=== PATIENT | male | born 1995 | race Caucasian/White ===

== ENCOUNTER 2022-10-25 09:08 | Emergency (ER) | payer MEDICAID ==
[~2022-10-25] VITALS: Ht 172.7 cm; Wt 90.9 kg
[~2022-10-25 09:08] MED LIST: CARB200T6
[2022-10-25 10:10] LABS: COVID AG,FIA SOURCE NASAL SWAB
[2022-10-25 10:52] LABS: INFLUENZA TYPE A NEGATIVE FOR TYPE A (NEGATIVE); INFLUENZA TYPE B NEGATIVE FOR TYPE B (NEGATIVE)
[2022-10-25] MEDS ORDERED: BENZ1LOZ77 PO (11:14)
[2022-10-25] MEDS ORDERED: BENZ-70 PO (11:14)
[2022-10-25] MEDS ORDERED: IBUP-2070 PO (11:14)
[2022-10-25 11:44] VITALS: BP 115/68
== END 2022-10-25 11:51 | disposition home or self-care (01) ==
LOC: EMS 09:14
DX: J06.9 Acute upper respiratory infection, unspecified (principal); Z20.822 Contact with and (suspected) exposure to COVID-19
CPT/HCPCS: 87804; 99283

== ENCOUNTER 2022-10-31 11:47 | Emergency (ER) | payer MEDICAID ==
[~2022-10-31] VITALS: Ht 170.2 cm; Wt 97.7 kg
[~2022-10-31 11:47] MED LIST changes: +BENZ-70 PO; +BENZ1LOZ77 PO; +IBUP-2070 PO
[2022-10-31 12:13] VITALS: BP 107/51
== END 2022-10-31 14:30 | disposition home or self-care (01) ==
LOC: EMS 11:49
DX: M79.671 Pain in right foot (principal)
CPT/HCPCS: 99283